=== PATIENT | male | born 1980 | race Caucasian/White ===

== ENCOUNTER 2017-05-16 11:46 | Emergency (ER) | payer OTHER ==
[2017-05-16 13:42] LABS: Hematocrit 44 % (42-52); Hemoglobin 15.5 g/dl (14.0-18.0); Mean Corpuscular HGB Conc 35 g/dl (31-36); Mean Corpuscular Hemoglobin 32 pg (27-31); Mean Corpuscular Volume 89 fL (80-94); Mean Platelet Volume 9 um3 (7.4-10.4); Red Blood Count 4.94 10^6/ul (4.0-5.4); Red Cell Distribution Width 13 % (10.5-15); White Blood Count 6.9 10^3/ul (3.5-10.8)
[2017-05-16 13:57] LABS: Albumin 4.4 g/dL (3.2-5.2); BUN/Creatinine Ratio 18.5 (8-20); C Reactive Protein 1.56 mg/L (< 5.00); Calcium 9.3 mg/dL (8.6-10.3); EGFR African American 140.3 (>60); EGFR Non-African American 109.1 (>60); Globulin 2.3 g/dL (2-4); Potassium 3.9 mmol/L (3.5-5.0); Total Bilirubin 0.5 mg/dL (0.2-1.0); Total Protein 6.7 g/dL (6.4-8.9); Uric Acid 4.6 mg/dL (4.4-7.6)
[2017-05-16] MEDS ORDERED: DOXYcycline CAP(*) 100 MG PO ONE (14:20)
--- NOTE | 2017-05-16 14:28 | ED ---
Complex/Multi-Sys Presentation - HPI Summary HPI Summary: Pt here w/ Lt knee redness pain and swelling yesterday along with B/L shoulder pain and UE achiness/stiffness. Subjective fever yesterday. Concerned that he could have Lyme disease as he removed a tick from his penis 2 days ago. No EM rash here. Feels he removed tick completely. Denies GARCIA, neck pain/stiffness, chest pain, SOB, palpitations, numbness, tingling, weakness, N/V/D. No h/o Lyme but has had ticks on him in the past - removed on his own w/o EM development and no prophylaxis treatment. He has h/o Lt knee injury years ago requiring surgery - has achiness at times, but not same today as typically irritations in past. Works construction. - History Of Current Complaint Chief Complaint: EDGeneral Time Seen by Provider: 05/16/17 12:07 Hx Obtained From: Patient - Allergies/Home Medications Allergies/Adverse Reactions: Allergies Allergy/AdvReac Type Severity Reaction Status Date / Time No Known Allergies Allergy Verified 05/16/17 12:03 PMH/Surg Hx/FS Hx/Imm Hx Previously Healthy: Yes Endocrine/Hematology History: Denies: Hx Anticoagulant Therapy, Hx Blood Disorders, Hx Systemic Lupus Erythematosus, Autoimmune Disease Musculoskeletal History: Reports: Hx Arthritis - Lt knee w/ reconstructive surgery s/p injury as a child Infectious Disease History: Yes Infectious Disease History: Denies: Traveled Outside the [place] in Last 30 Days - Family History Known Family History: Positive: None - no inflammatory arthritis - Social History Occupation: Employed Full-time - construction Lives: With Family Alcohol Use: Rare Hx Substance Use: No Substance Use Type: Reports: None Hx Tobacco Use: No Smoking Status (MU): Never Smoked Tobacco Review of Systems Constitutional: Other - see HPI Eyes: Negative ENT: Negative Cardiovascular: Negative Respiratory: Negative Gastrointestinal: Negative Positive: see HPI. Negative: burning, dysuria Musculoskeletal: Other - see HPI Skin: Other - see HPI Neurological: Negative Psychological: Normal All Other Systems Reviewed And Are Negative: Yes Physical Exam Triage Information Reviewed: Yes Vital Signs On Initial Exam: Initial Vitals Temp Pulse Resp BP Pulse Ox 98.9 F 57 19 135/94 99 05/16/17 12:00 05/16/17 12:00 05/16/17 12:00 05/16/17 12:00 05/16/17 12:00 Vital Signs Reviewed: Yes Appearance: Positive: Well-Appearing, No Pain Distress, Well-Nourished Skin: Positive: Warm, Dry - erythema w/ focal edema over Lt patella - appears to be inflammed bursitis - TTP, no streaking; 3mm area of erythematous papule on penile shaft - no EM rash or elsewhere on body Head/Face: Positive: Normal Head/Face Inspection Eyes: Positive: EOMI ENT: Positive: Hearing grossly normal Neck: Positive: Supple, Nontender Respiratory/Lung Sounds: Positive: Clear to Auscultation, Breath Sounds Present. Negative: Rales, Rhonchi, Wheezes Cardiovascular: Positive: Normal, RRR, S1, S2. Negative: Murmur, Rub Abdomen Description: Positive: Nontender, No Organomegaly, Soft Bowel Sounds: Positive: Present Musculoskeletal: Positive: Strength/ROM Intact, Pain @ - Lt knee pain w/ end range flexion/extension, Other - no other areas of joint erythema, edema or tenderness Neurological: Positive: Normal, Sensory/Motor Intact, Alert, Oriented to Person Place, Time, CN Intact II-III Psychiatric: Positive: Normal - Estrella Coma Scale Coma Scale Total: 15 Diagnostics - Vital Signs Vital Signs Temp Pulse Resp BP Pulse Ox 05/16/17 12:00 98.9 F 57 19 135/94 99 - Laboratory Lab Results: Lab Results 05/16/17 05/16/17 05/16/17 Range/Units 13:30 13:30 13:30 WBC 6.9 (3.5-10.8) 10^3/ul RBC 4.94 (4.0-5.4) 10^6/ul Hgb 15.5 (14.0-18.0) g/dl Hct 44 (42-52) % MCV 89 (80-94) fL MCH 32 H (27-31) pg MCHC 35 (31-36) g/dl RDW 13 (10.5-15) % Plt Count 219 (150-450) 10^3/ul MPV 9 (7.4-10.4) um3 Neut % (Auto) 67.2 (38-83) % Lymph % (Auto) 22.1 L (25-47) % [place] % (Auto) 8.7 (1-9) % Eos % (Auto) 1.5 (0-6) % Baso % (Auto) 0.5 (0-2) % Absolute Neuts (auto) 4.6 (1.5-7.7) 10^3/ul Absolute Lymphs (auto) 1.5 (1.0-4.8) 10^3/ul Absolute Monos (auto) 0.6 (0-0.8) 10^3/ul Absolute Eos (auto) 0.1 (0-0.6) 10^3/ul Absolute Basos (auto) 0 (0-0.2) 10^3/ul Absolute Nucleated RBC 0.01 10^3/ul Nucleated RBC % 0.1 Sodium 137 (133-145) mmol/L Potassium 3.9 (3.5-5.0) mmol/L Chloride 105 (101-111) mmol/L Carbon Dioxide 28 (22-32) mmol/L Anion Gap 4 (2-11) mmol/L BUN 15 (6-24) mg/dL Creatinine 0.81 (0.67-1.17) mg/dL Est GFR ( Amer) 140.3 (>60) Est GFR (Non-Af Amer) 109.1 (>60) BUN/Creatinine Ratio 18.5 (8-20) Glucose 87 (70-100) mg/dL Lactic Acid 0.8 (0.5-2.0) mmol/L Uric Acid 4.6 (4.4-7.6) mg/dL Calcium 9.3 (8.6-10.3) mg/dL Total Bilirubin 0.50 (0.2-1.0) mg/dL AST 23 (13-39) U/L ALT 20 (7-52) U/L Alkaline Phosphatase 72 (34-104) U/L C-Reactive Protein 1.56 (< 5.00) mg/L Total Protein 6.7 (6.4-8.9) g/dL Albumin 4.4 (3.2-5.2) g/dL Globulin 2.3 (2-4) g/dL Albumin/Globulin Ratio 1.9 (1-3) Result Diagrams: 05/16/17 13:30 05/16/17 13:30 Lab Statement: Any lab studies that have been ordered have been reviewed, and results considered in the medical decision making process. Complex Multi-Symp Course/Dx Course Of Treatment: Initially w/u started for systemic infection from cellulitis, septic knee, possible Lyme, however after discussing w/ Dr. Ricci, suspect patella bursitis in Lt knee. Provided w/ prophylaxis of Lyme as he removed tick within 72 hours. Jorge Lyme titer here today and pt to f/u w/ PCP for results and further care as needed. Advised ortho f/u if Lyme neg and knee pain/swelling persists. Reviewed danger s/sx of when to return. Pt agrees w/ plan. - Diagnoses Provider Diagnoses: Left knee pain, Tick bite Discharge - Discharge Plan Condition: Stable Disposition: HOME Patient Education Materials: Knee Pain (ED), Knee Bursitis (ED), Tick Bite (ED) Referrals: Eli Keyes MD [Medical Doctor] - Additional Instructions: Rest, ice, elevate, wrap with IMELDA for Left knee pain/swelling You may also take ibuprofen with food for pain/swelling Follow-up with PCP in 1-2 weeks for recheck of knee pain/swelling and lab results of Lyme testing done here today. Call today to schedule *If you develop headache, neck pain/stiffness, worsening of joint aches, fever, chills, chest pain, shortness of breath, palpitations, numbness, weakness, syncope, return to ED
[2017-05-16 14:49] VITALS: BP 136/84
== END 2017-05-16 14:48 | disposition home or self-care (01) ==
LOC: ED 11:46
DX: S30.862A Insect bite (nonvenomous) of penis, initial encounter (principal); M25.562 Pain in left knee; W57.XXXA Bitten or stung by nonvenomous insect and other nonvenomous arthropods, initial encounter; Y93.9 Activity, unspecified; Y92.9 Unspecified place or not applicable
CPT/HCPCS: 36415; 80053; 83605; 84550; 85025; 86140; 86618; 99282; A9270-GY